=== PATIENT | female | born 1990 | race Hispanic/Latino ===

== ENCOUNTER 2016-04-23 20:44 | Emergency (ER) ==
[2016-04-23 21:15] LABS: MANUAL DIFF NEEDED? NO
[2016-04-23 21:17] LABS: BASO% 0.2 % (0.0-0.8); EOS# 0.27 X1000 (0.0-0.7); EOS% 1.5 % (0.0-10.0); HEMATOCRIT 41.1 % (37.0-47.0); HEMOGLOBIN 13.6 g/dL (12.0-16.0); IMM GRAN# 0.06 X1000 (0.0-0.04); IMM GRAN% 0.3 % (0.0-0.5); LYMPH# 2.94 X1000 (1.2-3.4); MCH 27.2 PG (27-31); MCHC 33.1 g/dL (33-37); MCV 82.2 FL (81-99); MONO# 1.25 X1000 (0.11-0.59); MONO% 6.8 % (1.7-9.3); MPV 10.1 FL (7.4-10.4); NEUT% 75.2 % (42.2-75.2); PLT 432 X1000 (130-400)
[2016-04-23 21:27] LABS: URINE CULTURE NEEDED? NO; URINE SOURCE CLEAN CATCH
[2016-04-23 21:31] LABS: BILIRUBIN URINE NEGATIVE (NEGATIVE); BLOOD URINE LARGE (NEGATIVE); COLOR YELLOW; GLUCOSE URINE NEGATIVE (NEGATIVE); LEUKOCYTES URINE NEGATIVE (NEGATIVE); NITRITE URINE NEGATIVE (NEGATIVE); PH URINE 5.5; PROTEIN URINE 30 mg/dL (NEGATIVE); SP GRAVITY URINE 1.038; TURBIDITY URINE HAZY (CLEAR); UROBILINOGEN URINE 2 mg/dL (NORMAL)
[2016-04-23 21:33] LABS: URINE MICRO REVIEW NEEDED? YES
[2016-04-23 21:36] LABS: UR EPITHELIAL CELLS <10 /HPF (<10); URINE BACTERIA 1+ /HPF; URINE RBC TNTC /HPF (<10); URINE WBC <10 /HPF (<10)
[2016-04-23 21:42] LABS: URINE CASTS NONE SEEN; URINE CRYSTALS CA OXALATE PRESENT; URINE SMALL ROUND CELLS NONE SEEN
[2016-04-23 22:05] LABS: AGAP 17; ALBUMIN 3.9 g/dL (3.5-5.0); ALKALINE PHOSPHATASE 90 U/L (32-104); AMYLASE 56 U/L (20-200); BUN 11 mg/dL (8-22); CALCIUM 9.2 mg/dL (8.8-10.2); CHLORIDE 103 mmol/L (98-107); COSMO 281; GOT 11 U/L (10-30); GPT 15 U/L (10-36); LIPASE 21 U/L (13-60); POTASSIUM 3.9 mmol/L (3.5-5.1); SODIUM 140 mmol/L (136-145); TCO2 20 mmol/L (25-35); TOTAL BILIRUBIN 0.19 mg/dL (0.20-1.00); TOTAL PROTEIN 7.6 g/dL (6.3-8.3)
--- NOTE | 2016-04-23 22:28 | PROVIDER DOCUMENTATION ---
HPI-General Adult - General Source: patient - History of Present Illness -Gen Adult Nature of Presenting Problems: 26 y/o f presents to the ed with flu like symptoms. pt states she has had N/V/D along with SOB/cough/body aches X 3 days. pt denies any chills/fever. - General Chief Complaint: Flu Symptoms Stated Complaint: V/D, FEVER, COUGH Time Seen by Provider: 04/23/16 22:23 Allergies/Adverse Reactions: Patient Allergies Allergy/AdvReac Type Severity Reaction Status Date / Time No Known Allergies Allergy Verified 12/31/14 23:49 Review of Systems - Adult - REVIEW OF SYSTEMS - ADULT Constitutional: reports: fever. denies: chills Respiratory: reports: cough, shortness of breath. denies: pleurisy, wheezing Gastrointestinal: reports: diarrhea, nausea, vomiting. denies: constipation, rectal bleeding Past History - Adult - PAST MEDICAL HISTORY-ADULT Review of Records: reports: Old Records Reviewed, Nursing Assessment Review, Medications Reviewed Major Childhood Illnesses: reports: denies history Cardiovascular: reports: denies history Respiratory: reports: bronchitis Gastrointestinal: reports: denies history Genitourinary: reports: denies history Musculoskeletal: reports: denies history Neurological: reports: denies history Psychiatric: reports: denies history Endocrine/Immune: reports: denies history - PRIOR SURGERIES/PROCEDURES Surgical/Procedure History: reports: orthopedic (extremity) - IMMUNIZATION STATUS Childhood Immunizations: See Nurse Assessment Flu Vaccine: See Nurse Assessment - SOCIAL HISTORY Smoking: quit greater than 1 year Physical Exam-General - CONSTITUTIONAL General Appearance: alert, no apparent distress - EYES Eyes: PERRL/EOMI, pink conjunctivae, fundi clear, no AV nicking - HEAD, EARS, NOSE, MOUTH & THROAT HENMT: normocephalic/atraumatic, moist mucous membranes, normal ENT inspection - NECK Neck: non-tender, full range of motion, supple - RESPIRATORY Respiratory: chest non-tender, lungs clear, normal breath sounds - CARDIOVASCULAR Cardiovascular: normal peripheral pulses, regular rate, rhythm - GASTROINTESTINAL (ABDOMEN) Abdominal Exam: normal bowel sounds, non tender, soft - MUSCULOSKELETAL Back Exam: normal inspection - SKIN Integumentary: normal color, normal turgor, warm/dry - PSYCHIATRIC Psych/Mental Status: normal mood/affect, normal thought content, normal thought process, oriented x 3 Progress - PLAN OF CARE/RESULTS Progress/Plan/Lab Results: plan of care: labs, imaging Laboratory Tests 04/23/16 04/23/16 04/23/16 20:55 20:55 21:10 WBC 18.40 H RBC 5.00 Hgb 13.6 Hct 41.1 MCV 82.2 MCH 27.2 MCHC 33.1 RDW Std Deviation 13.9 Plt Count 432 H MPV 10.1 Immature Gran % (Auto) 0.3 Neut % (Auto) 75.2 Lymph % (Auto) 16.0 L [place] % (Auto) 6.8 Eos % (Auto) 1.5 Baso % (Auto) 0.2 Immature Gran # (Auto) 0.06 H Neut # (Auto) 13.85 H Lymph # (Auto) 2.94 [place]cher # (Auto) 1.25 H Eos # (Auto) 0.27 Baso # (Auto) 0.03 Sodium 140 Potassium 3.9 Chloride 103 Carbon Dioxide 20 L Anion Gap 17 BUN 11 Creatinine 0.8 Estimated GFR/1.73 m2 > 60 BUN/Creatinine Ratio 14 Glucose 144 H Calculated Osmolality 281 Calcium 9.2 Total Bilirubin 0.19 L AST 11 ALT 15 Alkaline Phosphatase 90 Total Protein 7.6 Albumin 3.9 Globulin 3.7 Albumin/Globulin Ratio 1.1 Amylase 56 Lipase 21 Urine Source Urine Color Urine Turbidity Urine pH Ur Specific [place] Urine Protein Ur Glucose (Stick) Ur Ketones (Stick) Urine Blood Urine Nitrite Urine Bilirubin Urobilinogen Dipstick Urine Leukocytes Urine WBC (Auto) Urine RBC (Auto) U Epithel Cells (Auto) Urine Bacteria (Auto) Urine Crystals Small Round Cells Urine Casts Urine Yeast-like Cells Urine Test NEGATIVE 04/23/16 21:10 WBC RBC Hgb Hct MCV MCH MCHC RDW Std Deviation Plt Count MPV Immature Gran % (Auto) Neut % (Auto) Lymph % (Auto) [place] % (Auto) Eos % (Auto) Baso % (Auto) Immature Gran # (Auto) Neut # (Auto) Lymph # (Auto) [place] # (Auto) Eos # (Auto) Baso # (Auto) Sodium Potassium Chloride Carbon Dioxide Anion Gap BUN Creatinine Estimated GFR/1.73 m2 BUN/Creatinine Ratio Glucose Calculated Osmolality Calcium Total Bilirubin AST ALT Alkaline Phosphatase Total Protein Albumin Globulin Albumin/Globulin Ratio Amylase Lipase Urine Source CLEAN CATCH Urine Color YELLOW Urine Turbidity HAZY Urine pH 5.5 Ur Specific [place] 1.038 Urine Protein 30 A Ur Glucose (Stick) NEGATIVE Ur Ketones (Stick) TRACE A Urine Blood LARGE A Urine Nitrite NEGATIVE Urine Bilirubin NEGATIVE Urobilinogen Dipstick 2 A Urine Leukocytes NEGATIVE Urine WBC (Auto) <10 Urine RBC (Auto) TNTC A U Epithel Cells (Auto) <10 Urine Bacteria (Auto) 1+ Urine Crystals CA OXALATE PRESENT Small Round Cells NONE SEEN Urine Casts NONE SEEN Urine Yeast-like Cells NONE SEEN Urine Test Orders Category Date Time Status NPO Diet 04/23/16 21:04 Active CHEST-2 VIEWS [RAD] Stat Exams 04/23/16 22:24 Taken AMYLASE [CHEM] Stat Lab 04/23/16 20:55 Completed CBC WITH ELECTRONIC DIFF [HEME] Stat Lab 04/23/16 20:55 Completed COMPREHENSIVE METABOLIC PANEL [CHEM] Stat Lab 04/23/16 20:55 Completed INFLUENZA SCREEN A/B Stat Lab 04/23/16 20:55 Completed LIPASE [CHEM] Stat Lab 04/23/16 20:55 Completed TEST-URINE [PREG] Stat Lab 04/23/16 21:10 Completed Strep [DIRECT STREP] Stat Lab 04/23/16 20:55 Completed URINALYSIS W/POSS RFLX CULT [URINALYSIS] Stat Lab 04/23/16 21:10 Completed URINE MANUAL MICROSCOPIC [URINALYSIS] Stat Lab 04/23/16 21:10 Completed Vital Signs - 24 hr 04/23/16 20:58 Temperature 97.9 F Pulse Rate 98 H Respiratory 18 Rate Blood Pressure 166/104 O2 Sat by Pulse 100 Oximetry - XRAY 1 XRAY Study: Chest XRAY Interpretation: NAD Departure - Departure Time of Disposition Order: 22:46 Certified Medical Emergency: Emergent - Departure DIAGNOSIS: Leukocytosis Qualifiers: Leukocytosis type: unspecified Qualified Code(s): D72.829 - Elevated white blood cell count, unspecified Acute bronchitis Qualifiers: Bronchitis organism: unspecified organism Qualified Code(s): J20.9 - Acute bronchitis, unspecified Disposition: HOME 01 Condition: Stable Additional Instructions: ED Follow Up Instructions: You have been treated by a care provider in the Emergency Department. These instructions are being provided to you so you can have an understanding of how to care for yourself upon discharge. Upon discharge from the Emergency Department, you are responsible for making arrangements for follow-up care by a physician of your choice. Take all prescribed medications as directed. Return to the Emergency Department immediately for any new or worsening symptoms. You may call the Physician Referral phone number at [phone] to obtain a list of Physicians who are taking new patients. Prescriptions: Benzonatate [Tessalon Perle] 100 mg PO TID PRN #21 capsule PRN Reason: Cough Azithromycin [Zithromax Z-Rufino] 250 mg PO DIRECTED #1 pkg Referrals: None,PCP [Primary Care Provider] - Instructions: Leukocytosis, Acute Bronchitis, [id number] Attestation - Scribe Verification/Attestation Scribe:: Patty Rosen Acting as Scribe for:: Reid Oakes Scribe documention review:: This chart was documented by a scribe and accurately reflects the service the provider performed and the decisions made by the provider. Physician Attestation
[2016-04-23] MEDS ORDERED: ROCEPHIN IM ONE (22:46)
[2016-04-23] MEDS ORDERED: XYLOCAINE-MPF 1% INJ ONE (22:46)
[2016-04-23] MEDS ORDERED: TESSALON PO ONE (22:47)
[2016-04-23 23:54] VITALS: BP 123/51
--- NOTE | 2016-04-24 12:28 | Diag Imaging Result Document ---
PROCEDURE NAME: CHEST-2 VIEWS - 04/23/2016 PA AND LATERAL RADIOGRAPH OF THE CHEST.: COMPARISON: None available. FINDINGS: The lungs are grossly clear. There is no discrete pleural fluid collection or evidence of pneumothorax. The cardiomediastinal silhouette and upper airway are grossly unremarkable. IMPRESSION: No evidence of acute chest pathology.
== END 2016-04-23 23:53 | disposition home or self-care (01) ==
LOC: ED 20:44
DX: J20.9 Acute bronchitis, unspecified (principal); D72.829 Elevated white blood cell count, unspecified; R11.2 Nausea with vomiting, unspecified; R19.7 Diarrhea, unspecified; R06.02 Shortness of breath; R05 Cough; R50.9 Fever, unspecified; R52 Pain, unspecified; Z87.891 Personal history of nicotine dependence
CPT/HCPCS: 36415; 71020; 80053; 81001; 81025; 82150; 83690; 85025; 87081; 87430; 87804; 99284; J0696